=== PATIENT | male | born 1965 | race Caucasian/White ===

== ENCOUNTER 2018-03-28 23:35 | Emergency (ER) | payer MEDICARE, OTHER ==
--- NOTE | 2018-03-28 23:45 | ED Physician Documentation ---
General Adult - HISTORIAN Historian: patient - HPI Stated Complaint: shortness of breath Chief Complaint: General Adult Additional Information: intro self as [employer]. pt presents to the ED with PD c/o shortness of breath. pt has been in [facility] for 15 days. pt has a hx of meth use 3 days ago per pt. pt is able to converse in full sentences and no evidence of dyspnea during this history. pt denies current chest pain, syncope/near syncope, headache, dizziness, visual disturbances, n/v/d, fever/chills, rash, sick contacts, dysuria, trauma. melena or hematochezia, bleeding or easy bruising, change in bowel or bladder function, no recent weight loss/gain, anxiety or depression. ROS Negative unless otherwise specified. - ROS CONST: no problems EYES/ENT: denies: sore throat, nasal drainage, nasal congestion CVS/RESP: denies: chest pain, shortness of breath, cough GI/: denies: abdominal pain, problems urinating, vomiting, nausea, diarrhea - PAST HX Past History: hypertension Allergies/Adverse Reactions: Allergies Allergy/AdvReac Type Severity Reaction Status Date / Time Penicillins Allergy Verified 04/09/15 19:07 Home Medications: Ambulatory Orders Medication Instructions Recorded Atorvastatin Calcium [Lipitor] 80 mg PO HS 04/09/15 - SOCIAL HX Smoking History: greater than 1 pack/day Alcohol Use: occasionally Drug Use: marijuana, methamphetamines - FAMILY HX Family History: No - VITAL SIGNS Vital Signs: Vital Signs Temp Pulse Resp BP Pulse Ox 150/93 04/09/15 19:21 - REVIEWED ASSESSMENTS Nursing Assessment Reviewed: Yes Vitals Reviewed: Yes ED Results Lab/Radiology - Orders Orders: ED Orders Category Date Time Status EKG WITH COMPARISON Stat Ther 03/28/18 Ordered General Adult Physical Exam - PHYSICAL EXAM GENERAL APPEARANCE: no distress (Thin) EENT: eye inspection normal, ENT inspection normal, pharynx normal, no signs of dehydration, ISIS, no nystagmus, TM's nml NECK: normal inspection, thyroid normal. No: lymphadenopathy RESPIRATORY: no resp distress, chest non-tender, breath sounds normal CVS: reg rate & rhythm, heart sounds normal, equal pulses, no murmur, no gallop, PMI nml, no JVD, no friction rub, 24 ABDOMEN: soft, no organomegaly, normal bowel sounds, no distension BACK: normal inspection, no CVA tenderness SKIN: normal color, warm/dry, NR, INT, PAL, DR EXTREMITIES: non-tender, normal range of motion, no evidence of injury, no edema, J, [employer] NEURO: oriented X3, motor nml, sensation nml, mood/affect nml Discharge Clincal Impression: Anxiety Drug withdrawal Qualifiers: Substance type: other psychostimulant Qualified Code(s): F15.93 - Other stim ulant use, unspecified with withdrawal Additional Instructions: Rest. increase hydration Stop doing drugs or you will or end up in a retirement. benadryl 25-50 mg every 8 hours as needed for withdraw symptoms. Condition: Stable Disposition: 01 HOME, SELF-CARE Decision to Admit: NO Date of Decison to Admit: 03/28/18 Decision Time: 23:52
[2018-03-28] MEDS ORDERED: diphenhydrAMINE HCL 25 MG TABLET PO STA (23:57)
[2018-03-29 00:29] VITALS: BP 162/95
== END 2018-03-29 00:10 | disposition home or self-care (01) ==
LOC: ED 23:35
DX: F41.9 Anxiety disorder, unspecified (principal); F15.93 Other stimulant use, unspecified with withdrawal
CPT/HCPCS: 93005; 99282; 99283; Q0163